=== PATIENT | male | born 1970 | race Caucasian/White ===

== ENCOUNTER 2017-08-14 12:12 | Inpatient (IN) | payer MEDICAID ==
[~2017-08-14] VITALS: Ht 175.3 cm; Wt 54.0 kg
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
[2017-08-14] MEDS ORDERED: Morphine Sulfate 4mg/ml Inj IVP ONE (12:45)
[2017-08-14] MEDS ORDERED: Bacitracin Oint UD TOPIC ONE ×2 (12:45)
[2017-08-14] MEDS ORDERED: Tetanus/Diptheria/Pertussis Vaccine 0.5ml Syr IM ONE (13:00)
[2017-08-14 13:18] VITALS: BP 127/54
[2017-08-14 13:21] LABS: BASOPHILS % (AUTO) 1.2 % (0.0-2.0); EOSINOPHILS % (AUTO) 0.8 % (0.0-3.0); LYMPHOCYTES % (AUTO) 18.8 % (20.0-45.0); MEAN CORPUSCULAR HEMOGLOBIN 31.8 PG (27.0-31.0); MEAN CORPUSCULAR HGB CONC 34.1 G/DL (32.0-36.0); MEAN CORPUSCULAR VOLUME 93 FL (80-99); MEAN PLATELET VOLUME 4.7 FL (6.5-10.1); MONOCYTES % (AUTO) 11.2 % (1.0-10.0); NEUTROPHILS % (AUTO) 67.9 % (45.0-75.0); PLATELET COUNT 268 K/UL (150-450); RED BLOOD COUNT 4.57 M/UL (4.70-6.10); WHITE BLOOD COUNT 4.9 K/UL (4.8-10.8)
[2017-08-14 13:37] LABS: ANION GAP 12 mmol/L (5-15); CALCIUM 8.8 MG/DL (8.5-10.1); CARBON DIOXIDE 23 MMOL/L (21-32); CHLORIDE 106 MMOL/L (98-107); CREATININE 0.8 MG/DL (0.55-1.30); GLOMERULAR FILTRATION RATE > 60 mL/min (>60); POTASSIUM 3.9 MMOL/L (3.5-5.1); SODIUM 141 MMOL/L (136-145)
[2017-08-14 13:42] LABS: ALANINE AMINOTRANSFERASE 27 U/L (12-78); ALBUMIN/GLOBULIN RATIO 0.7 (1.0-2.7); ASPARTATE AMINO TRANSFERASE 32 U/L (15-37); TOTAL PROTEIN 7.4 G/DL (6.4-8.2)
[2017-08-14] MEDS ORDERED: Ketorolac 30mg Inj IV ONE (15:00)
[2017-08-14 15:22] VITALS: BP 123/6
[2017-08-14 15:57] VITALS: BP 123/56
[2017-08-14] MEDS ORDERED: LORazepam Inj 2mg/ml 1ml IV PRN (16:15)
[2017-08-14] MEDS ORDERED: Morphine Sulfate 4mg/ml Inj IVP PRN (16:15)
[2017-08-14] MEDS ORDERED: Miralax 17gm pkt ORAL PRN (16:15)
[2017-08-14] MEDS ORDERED: Mylanta II UD 30ml ORAL PRN (16:15)
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
[2017-08-14 17:05] VITALS: BP 114/72
[2017-08-14] MEDS: Morphine Sulfate 2mg/ml Inj IVP PRN ×2 (18:16→22:16)
[2017-08-14 20:00] VITALS: BP 125/73
[2017-08-14] MEDS: Heparin 5000 units/ml inj SUBQ SCH (21:00)
[2017-08-14] MEDS: Zolpidem 5mg tab ORAL PRN (23:08)
[2017-08-15] VITALS: BP 112/77
[2017-08-15] MEDS: Morphine Sulfate 2mg/ml Inj IVP PRN (06:47)
[2017-08-15 08:00] VITALS: BP 133/77
[2017-08-15 08:32] LABS: BASOPHILS % (AUTO) 2.5 % (0.0-2.0); EOSINOPHILS % (AUTO) 3.8 % (0.0-3.0); LYMPHOCYTES % (AUTO) 28.2 % (20.0-45.0); MEAN CORPUSCULAR HEMOGLOBIN 32.8 PG (27.0-31.0); MEAN CORPUSCULAR HGB CONC 34.8 G/DL (32.0-36.0); MEAN CORPUSCULAR VOLUME 94 FL (80-99); MEAN PLATELET VOLUME 4.6 FL (6.5-10.1); MONOCYTES % (AUTO) 11.5 % (1.0-10.0); PLATELET COUNT 263 K/UL (150-450); RED BLOOD COUNT 4.21 M/UL (4.70-6.10); RED CELL DISTRIBUTION WIDTH 11.1 % (11.6-14.8); WHITE BLOOD COUNT 4.5 K/UL (4.8-10.8)
[2017-08-15 08:57] LABS: ALANINE AMINOTRANSFERASE 45 U/L (12-78); ALBUMIN/GLOBULIN RATIO 0.7 (1.0-2.7); ANION GAP 8 mmol/L (5-15); ASPARTATE AMINO TRANSFERASE 51 U/L (15-37); CALCIUM 8.5 MG/DL (8.5-10.1); CARBON DIOXIDE 25 MMOL/L (21-32); CHLORIDE 106 MMOL/L (98-107); CREATININE 0.8 MG/DL (0.55-1.30); GLOMERULAR FILTRATION RATE > 60 mL/min (>60); POTASSIUM 3.9 MMOL/L (3.5-5.1); SODIUM 139 MMOL/L (136-145); THYROID STIMULATING HORMONE 3.024 uiU/mL (0.358-3.740); TOTAL PROTEIN 6.9 G/DL (6.4-8.2)
[2017-08-15] MEDS: Heparin 5000 units/ml inj SUBQ SCH ×2 (09:00→20:17)
--- NOTE | 2017-08-15 09:28 | Consultation ---
History of Present Illness General Date patient seen: Aug 15, 2017 Chief Complaint: Pain Present Illness Allergies: Coded Allergies: MUSHROOM (Verified Allergy, Unknown, 08/14/17) Medication History No Active Prescriptions or Reported Meds Patient History Healthcare decision maker Resuscitation status Full Code Advanced Directive on File No Physical Exam Last 24 Hour Vital Signs Date Time Temp Pulse Resp B/P (MAP) Pulse Ox O2 Delivery O2 Flow Rate FiO2 08/15/17 08:00 98.1 69 18 133/77 100 Room Air 08/15/17 00:00 98.4 90 19 112/77 98 Room Air 08/14/17 20:00 97.7 75 19 125/73 100 Room Air 08/14/17 17:05 97.7 70 19 114/72 97 Room Air 08/14/17 16:13 98.4 82 18 123/56 100 Room Air 08/14/17 15:57 98.4 82 18 123/56 100 Room Air 08/14/17 15:25 98.4 08/14/17 15:22 98.4 82 18 123/6 100 Room Air 08/14/17 13:52 98.4 08/14/17 13:18 98.4 78 20 127/54 100 Room Air 08/14/17 12:20 98.4 82 20 116/65 100 Room Air Laboratory Tests Test 08/14/17 13:00 08/15/17 07:40 White Blood Count 4.9 K/UL (4.8-10.8) 4.5 K/UL (4.8-10.8) L Red Blood Count 4.57 M/UL (4.70-6.10) L 4.21 M/UL (4.70-6.10) L Hemoglobin 14.5 G/DL (14.2-18.0) 13.8 G/DL (14.2-18.0) L Hematocrit 42.5 % (42.0-52.0) 39.7 % (42.0-52.0) L Mean Corpuscular Volume 93 FL (80-99) 94 FL (80-99) Mean Corpuscular Hemoglobin 31.8 PG (27.0-31.0) H 32.8 PG (27.0-31.0) H Mean Corpuscular Hemoglobin Concent 34.1 G/DL (32.0-36.0) 34.8 G/DL (32.0-36.0) Red Cell Distribution Width 11.0 % (11.6-14.8) L 11.1 % (11.6-14.8) L Platelet Count 268 K/UL (150-450) 263 K/UL (150-450) Mean Platelet Volume 4.7 FL (6.5-10.1) L 4.6 FL (6.5-10.1) L Neutrophils (%) (Auto) 67.9 % (45.0-75.0) 54.0 % (45.0-75.0) Lymphocytes (%) (Auto) 18.8 % (20.0-45.0) L 28.2 % (20.0-45.0) Monocytes (%) (Auto) 11.2 % (1.0-10.0) H 11.5 % (1.0-10.0) H Eosinophils (%) (Auto) 0.8 % (0.0-3.0) 3.8 % (0.0-3.0) H Basophils (%) (Auto) 1.2 % (0.0-2.0) 2.5 % (0.0-2.0) H Sodium Level 141 MMOL/L (136-145) 139 MMOL/L (136-145) Potassium Level 3.9 MMOL/L (3.5-5.1) 3.9 MMOL/L (3.5-5.1) Chloride Level 106 MMOL/L (98-107) 106 MMOL/L (98-107) Carbon Dioxide Level 23 MMOL/L (21-32) 25 MMOL/L (21-32) Anion Gap 12 mmol/L (5-15) 8 mmol/L (5-15) Blood Urea Nitrogen 21 mg/dL (7-18) H 21 mg/dL (7-18) H Creatinine 0.8 MG/DL (0.55-1.30) 0.8 MG/DL (0.55-1.30) Estimat Glomerular Filtration Rate > 60 mL/min (>60) > 60 mL/min (>60) Glucose Level 98 MG/DL (74-106) 125 MG/DL (74-106) H Calcium Level 8.8 MG/DL (8.5-10.1) 8.5 MG/DL (8.5-10.1) Total Bilirubin 0.5 MG/DL (0.2-1.0) 0.6 MG/DL (0.2-1.0) Aspartate Amino Transf (AST/SGOT) 32 U/L (15-37) 51 U/L (15-37) H Alanine Aminotransferase (ALT/SGPT) 27 U/L (12-78) 45 U/L (12-78) Alkaline Phosphatase 69 U/L (46-116) 65 U/L (46-116) Total Creatine Kinase 289 U/L (26-308) Total Protein 7.4 G/DL (6.4-8.2) 6.9 G/DL (6.4-8.2) Albumin 3.1 G/DL (3.4-5.0) L 2.8 G/DL (3.4-5.0) L Globulin 4.3 g/dL 4.1 g/dL Albumin/Globulin Ratio 0.7 (1.0-2.7) L 0.7 (1.0-2.7) L Thyroid Stimulating Hormone (TSH) 3.024 uiU/mL (0.358-3.740) Height (Feet): 5 Height (Inches): 9.00 Weight (Pounds): 119 Medications Current Medications Medications (Trade) Dose Ordered Sig/K[place]y Route PRN Reason Start Time Stop Time Status Last Admin Dose Admin Acetaminophen (Tylenol) 650 mg Q4H PRN ORAL T> 100.5 F 08/14/17 16:15 09/13/17 16:14 Al Hydroxide/Mg Hydroxide (Mylanta II) 30 ml Q6H PRN ORAL dyspepsia 08/14/17 16:15 09/13/17 16:14 Dextrose (Dextrose 50%) STAT PRN IV Hypoglycemia 08/14/17 16:15 09/13/17 16:14 Heparin Sodium (Porcine) (Heparin 5000 units/ml) 5,000 units EVERY 12 HOURS SUBQ 08/14/17 21:00 09/13/17 20:59 Lorazepam (Ativan 2mg/ml 1ml) 0.5 mg Q4H PRN IV For Anxiety 08/14/17 16:15 08/21/17 16:14 Methocarbamol (Robaxin) 500 mg Q8H ORAL 08/15/17 09:30 09/14/17 09:29 UNV Ondansetron HCl (Zofran) 4 mg Q6H PRN IVP Nausea & Vomiting 08/14/17 16:15 09/13/17 16:14 Oxycodone/ Acetaminophen (Percocet 10/325) 1 tab Q4H PRN ORAL severe pain 08/15/17 09:30 08/22/17 09:29 UNV Polyethylene Glycol (Miralax) 17 gm HSPRN PRN ORAL Constipation 08/14/17 16:15 09/13/17 16:14 Pregabalin (Lyrica) 50 mg THREE TIMES A DAY ORAL 08/15/17 09:30 09/14/17 09:29 UNV Zolpidem Tartrate (Ambien) 5 mg HSPRN PRN ORAL Insomnia 08/14/17 21:00 08/21/17 20:59 08/14/17 23:08 Assessment/Plan Assessment/Plan (1) Intractable pain (2) Left foot Navicular Fracture (3) Lumbago (4) Multiple contusions Seen dictated ALETHEA GRAY Aug 15, 2017 09:28
[2017-08-15] MEDS: Lyrica 50mg cap ORAL SCH ×3 (10:13→17:33)
[2017-08-15] MEDS: Methocarbamol 500mg tab ORAL SCH ×2 (10:46→17:32)
[2017-08-15 12:00] VITALS: BP 107/70
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
[2017-08-15 16:00] VITALS: BP 113/67
[2017-08-15 20:00] VITALS: BP 116/73
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
[2017-08-16] VITALS: BP 114/74
[2017-08-16] MEDS: Zolpidem 5mg tab ORAL PRN (00:58)
[2017-08-16] MEDS: Methocarbamol 500mg tab ORAL SCH ×3 (00:58→17:48)
[2017-08-16 04:00] VITALS: BP 121/71
[2017-08-16 08:00] VITALS: BP 126/81
[2017-08-16] MEDS: Lyrica 50mg cap ORAL SCH ×3 (08:28→18:51)
[2017-08-16] MEDS: Heparin 5000 units/ml inj SUBQ SCH ×2 (08:29→21:06)
--- NOTE | 2017-08-16 09:00 | General Progress Note ---
Assessment/Plan Assessment/Plan (1) Intractable pain (2) Left foot Navicular Fracture (3) Lumbago (4) Multiple contusions Pt to be continued on Percocet and will be started on Dilaudid 2mg PO 1tab Q6H PRN severe pain. D/w Dr. Peña and he concurred. Subjective Date patient seen: Aug 16, 2017 Time patient seen: 07:15 - am Allergies: Coded Allergies: MUSHROOM (Verified Allergy, Unknown, 08/14/17) Subjective REVIEW OF SYSTEMS: Denies rash, fever, chills, sweating, dizziness, drowsiness, blurred vision, sore throat, or change in weight. No shortness of breath or chest pain. No nausea, vomiting, diarrhea, or blood in the stool or urine. No bowel or bladder incontinence . No dysuria. He is complaining of generalized pain. SUBJECTIVE: Pt reports that his pain has been severe and not tolerated on the Percocet and is unable to have relief. Medical records were reviewed. Objective Last 24 Hour Vital Signs Date Time Temp Pulse Resp B/P (MAP) Pulse Ox O2 Delivery O2 Flow Rate FiO2 08/16/17 04:00 97.6 64 18 121/71 99 Room Air 08/16/17 00:00 98.8 73 20 114/74 97 Room Air 08/15/17 20:00 98.6 61 20 116/73 98 Room Air 08/15/17 16:00 98.4 63 19 113/67 99 Room Air 08/15/17 12:00 98.1 70 19 107/70 99 Room Air Height (Feet): 5 Height (Inches): 9.00 Weight (Pounds): 119 Objective GENERAL: Alert, awake, and oriented. HEENT: PERRLA with contusions and abrasions noted across on his lips, nose, and face. NECK: Range of motion is decreased due to the patient's clinical condition. No tenderness to paracervical muscles. No adenopathy. LUNGS: Clear. HEART: Regular. ABDOMEN: Benign. BACK: Range of motion is decreased in flexion and extension with tenderness to paraspinal muscles. No tenderness to trapezius and rhomboid muscles. EXTREMITIES: Lower extremity range of motion is decreased due to the patient's clinical condition with bandages applied to bilateral lower extremities. NEURO: No changes. ZEDNALETHEA GUZMAN Aug 16, 2017 09:00
[2017-08-16] MEDS: HYDROmorphone 2mg tab ORAL PRN ×3 (10:37→23:31)
--- NOTE | 2017-08-16 10:37 | Diagnostic Imaging Report ---
Indication: PAIN Technique: 3 views of the left ankle Comparison: none Findings: No acute fractures. No dislocations. Joint spaces are preserved Impression: Negative
--- NOTE | 2017-08-16 10:40 | Diagnostic Imaging Report ---
Indication: PAIN Technique: 3 views of the right ankle Comparison: none Findings: No acute fractures. No dislocations. Joint spaces are preserved. Normal mineralization. No radiopaque foreign body. Impression: Negative
--- NOTE | 2017-08-16 10:41 | Diagnostic Imaging Report ---
Indication: PAIN Technique: 3 views right foot Comparison: none Findings: No acute fractures. No dislocations. The joint spaces are preserved. Tiny bone island is seen within the first distal phalanx. Impression: Negative
--- NOTE | 2017-08-16 10:42 | Diagnostic Imaging Report ---
Indication: PAIN Technique: 3 views left foot Comparison: none Findings: No acute fractures. No dislocations. The joint spaces are preserved. Impression: Negative
[2017-08-16 12:00] VITALS: BP 131/79
[2017-08-16] MEDS ORDERED: Bacitracin Oint UD TOPIC PRN (12:30)
--- NOTE | 2017-08-16 13:44 | Wound Care Consultation ---
Wound Assessment Wound Assessment : Wound Present on Admission: Yes New Wound: No Status Change of Wound: No Wound Location Body Site Modif: other Wound Location Body Site: other - Left cheek,nose,bottom lip,chin, right hand and fingers,left hand and fingers, left elbow,left lower leg, left foot extending to dorsal foot, left shoulder,right upper arm,right knee, right lateral malleolus extending to dorsal foot and posterior back Wound Type: traumatic injury Jessy Test: Does not Jessy Traumatic Injury Wounds: Abrasion Wound Thickness: Full Thickness Wound Drainage Description: Serosanguineous Wound Drainage Amount: Scant Wound Drainage Odor: None/Absent Tissue Surrounding Wound: Macerated Wound General Appearance: Reddened, Draining Wound Comment Recommendations -Local wound care per protocol for full thickness and partial thickness open wounds -Keep clean and dry -Optimize nutrition -Assess and f/u with MD for any changes CHRIS TOMPKINS RN Aug 16, 2017 13:44
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
[2017-08-16 16:00] VITALS: BP 122/82
[2017-08-16 20:00] VITALS: BP 137/78
--- NOTE | 2017-08-16 23:46 | Consultation ---
History of Present Illness General Chief Complaint: Pain Present Illness HPI 46-year-old male presents to the emergency department complaining of 10 out of 10 in severity pain throughout his lower half of the body. Allergies: Coded Allergies: MUSHROOM (Verified Allergy, Unknown, 08/14/17) Medication History No Active Prescriptions or Reported Meds Patient History Healthcare decision maker Resuscitation status Full Code Advanced Directive on File No Physical Exam Last 24 Hour Vital Signs Date Time Temp Pulse Resp B/P (MAP) Pulse Ox O2 Delivery O2 Flow Rate FiO2 08/16/17 20:00 98.2 65 20 137/78 99 Room Air 08/16/17 16:00 98.1 61 18 122/82 98 08/16/17 12:00 98.1 58 18 131/79 100 08/16/17 12:00 100 Room Air 08/16/17 08:00 98.2 61 18 126/81 95 Room Air 08/16/17 08:00 95 Room Air 08/16/17 04:00 97.6 64 18 121/71 99 Room Air 08/16/17 00:00 98.8 73 20 114/74 97 Room Air Intake and Output 08/16/17 08/17/17 19:00 07:00 Intake Total 240 ml Output Total 1450 ml Balance -1210 ml Intake Oral 240 ml Output Urine Total 1450 ml Height (Feet): 5 Height (Inches): 9.00 Weight (Pounds): 119 Medications Current Medications Medications (Trade) Dose Ordered Sig/Korey Route PRN Reason Start Time Stop Time Status Last Admin Dose Admin Acetaminophen (Tylenol) 650 mg Q4H PRN ORAL T> 100.5 F 08/14/17 16:15 09/13/17 16:14 Al Hydroxide/Mg Hydroxide (Mylanta II) 30 ml Q6H PRN ORAL dyspepsia 08/14/17 16:15 09/13/17 16:14 Bacitracin (Bacitracin) 1 applic DAILY PRN TOPIC Itching 08/16/17 12:30 09/15/17 12:29 08/16/17 15:28 Dextrose (Dextrose 50%) STAT PRN IV Hypoglycemia 08/14/17 16:15 09/13/17 16:14 Heparin Sodium (Porcine) (Heparin 5000 units/ml) 5,000 units EVERY 12 HOURS SUBQ 08/14/17 21:00 09/13/17 20:59 08/16/17 21:06 Hydromorphone HCl (Dilaudid) 2 mg Q6H PRN ORAL Breakthrough Pain 08/16/17 10:00 08/23/17 09:59 08/16/17 23:31 Lorazepam (Ativan 2mg/ml 1ml) 0.5 mg Q4H PRN IV For Anxiety 08/14/17 16:15 08/21/17 16:14 Methocarbamol (Robaxin) 500 mg Q8H ORAL 08/15/17 09:30 09/14/17 09:29 08/16/17 17:48 Nicotine (Nicoderm) 1 patch Q24H TDERMAL 08/16/17 08:00 09/15/17 07:59 08/16/17 08:28 Ondansetron HCl (Zofran) 4 mg Q6H PRN IVP Nausea & Vomiting 08/14/17 16:15 09/13/17 16:14 Oxycodone/ Acetaminophen (Percocet 10/325) 1 tab Q4H PRN ORAL severe pain 08/15/17 09:30 08/22/17 09:29 08/16/17 21:05 Polyethylene Glycol (Miralax) 17 gm HSPRN PRN ORAL Constipation 08/14/17 16:15 09/13/17 16:14 Pregabalin (Lyrica) 50 mg THREE TIMES A DAY ORAL 08/15/17 09:30 09/14/17 09:29 08/16/17 18:51 Zolpidem Tartrate (Ambien) 5 mg HSPRN PRN ORAL Insomnia 08/14/17 21:00 08/21/17 20:59 08/16/17 00:58 Fuentes Fenton M.D. Aug 16, 2017 23:46
[2017-08-17] VITALS: BP 123/85
[2017-08-17] MEDS: Zolpidem 5mg tab ORAL PRN (01:14)
[2017-08-17] MEDS: Methocarbamol 500mg tab ORAL SCH ×3 (01:14→18:09)
[2017-08-17 04:10] VITALS: BP 132/65
[2017-08-17] MEDS: HYDROmorphone 2mg tab ORAL PRN ×2 (07:36→16:09)
[2017-08-17 08:00] VITALS: BP 120/78
--- NOTE | 2017-08-17 08:53 | General Progress Note ---
Assessment/Plan Assessment/Plan (1) Intractable pain (2) Left foot Navicular Fracture (3) Lumbago (4) Multiple contusions Pt to be continued on Percocet and Dilaudid. We will order an MRI of Lumbar spine w/o contrast. D/w Dr. Peña and he concurred. Subjective Date patient seen: Aug 17, 2017 Time patient seen: 07:30 - am Allergies: Coded Allergies: MUSHROOM (Verified Allergy, Unknown, 08/14/17) Subjective REVIEW OF SYSTEMS: Denies rash, fever, chills, sweating, dizziness, drowsiness, blurred vision, sore throat, or change in weight. No shortness of breath or chest pain. No nausea, vomiting, diarrhea, or blood in the stool or urine. No bowel or bladder incontinence . No dysuria. He is complaining of generalized pain. SUBJECTIVE: Pt is in bed and continues to c/o severe pain. The pain has been tolerated on the medications and is looking forward to being discharged to SNF as per lens blank gauger. Objective Last 24 Hour Vital Signs Date Time Temp Pulse Resp B/P (MAP) Pulse Ox O2 Delivery O2 Flow Rate FiO2 08/17/17 08:00 97.7 86 20 120/78 98 08/17/17 04:11 Room Air 08/17/17 04:10 97.5 80 18 132/65 95 08/17/17 00:00 98.1 62 20 123/85 100 Room Air 08/17/17 00:00 Room Air 08/16/17 20:00 98.2 65 20 137/78 99 Room Air 08/16/17 20:00 Room Air 08/16/17 16:00 98.1 61 18 122/82 98 08/16/17 12:00 98.1 58 18 131/79 100 08/16/17 12:00 100 Room Air Height (Feet): 5 Height (Inches): 9.00 Weight (Pounds): 119 Objective GENERAL: Alert, awake, and oriented. HEENT: PERRLA with contusions and abrasions noted across on his lips, nose, and face. NECK: Range of motion is decreased due to the patient's clinical condition. No tenderness to paracervical muscles. No adenopathy. LUNGS: Clear. HEART: Regular. ABDOMEN: Benign. BACK: Range of motion is decreased in flexion and extension with tenderness to paraspinal muscles. No tenderness to trapezius and rhomboid muscles. EXTREMITIES: Lower extremity range of motion is decreased due to the patient's clinical condition with bandages applied to bilateral lower extremities. NEURO: No changes. ALETHEA GRAY Aug 17, 2017 08:53
[2017-08-17] MEDS ORDERED: BuPROPion XL 150mg tab ORAL SCH (09:00)
[2017-08-17] MEDS: Lyrica 50mg cap ORAL SCH ×2 (09:06→14:00)
[2017-08-17] MEDS: Heparin 5000 units/ml inj SUBQ SCH (09:08)
[2017-08-17 12:00] VITALS: BP 109/68
[2017-08-17 16:00] VITALS: BP 119/86
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
[2017-08-17] MEDS ORDERED: TraZODone 50mg tab ORAL SCH (21:00)
--- NOTE | 2017-08-17 23:08 | General Progress Note ---
Assessment/Plan Status: stable, progressing Assessment/Plan anxiety mdd -cont current meds Subjective Date patient seen: Aug 17, 2017 Neurologic/Psychiatric: Reports: anxiety, depressed, emotional problems Allergies: Coded Allergies: MUSHROOM (Verified Allergy, Unknown, 08/14/17) Objective Last 24 Hour Vital Signs Date Time Temp Pulse Resp B/P (MAP) Pulse Ox O2 Delivery O2 Flow Rate FiO2 08/17/17 16:00 97.9 73 21 119/86 99 Room Air 08/17/17 12:00 98.1 84 20 109/68 98 08/17/17 08:00 97.7 86 20 120/78 98 08/17/17 04:11 Room Air 08/17/17 04:10 97.5 80 18 132/65 95 08/17/17 00:00 98.1 62 20 123/85 100 Room Air 08/17/17 00:00 Room Air Intake and Output 08/17/17 08/18/17 19:00 07:00 Intake Total 240 ml Output Total 550 ml Balance -310 ml Intake Oral 240 ml Output Urine Total 550 ml Height (Feet): 5 Height (Inches): 9.00 Weight (Pounds): 119 General Appearance: no apparent distress, alert, thin Neurologic: alert, oriented x 3, responsive Fuentes Fenton M.D. Aug 17, 2017 23:08
--- NOTE | 2017-08-18 23:25 | Discharge Summary ---
Discharge Summary Hospital Course Date of Admission Aug 14, 2017 at 15:01 Date of Discharge Aug 17, 2017 at 18:25 Admitting Diagnosis myalgia, malingering, unable to ambulate HPI Manohar Matute is a 46 year old male who was admitted on Aug 14, 2017 at 15:01 for Myalgia,Malingering,Unable To Ambulate Hospital Course [id number] Discharge Discharge Disposition Patient was discharged to SNF/Subacute Facility(03) Discharge Diagnoses: Carmela Kowalski NP Aug 18, 2017 23:25
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
== END 2017-08-17 18:25 | DRG 342 ==
LOC: EDUNIT# 12:12 → EDBD 12:12 → EMR 12:30 → 4E 15:01 → EDBEDREQ 15:42
DX: S92.252A Displaced fracture of navicular [scaphoid] of left foot, initial encounter for closed fracture (principal); F32.9 Major depressive disorder, single episode, unspecified; T14.8XXA Other injury of unspecified body region, initial encounter; M54.5 Low back pain; F41.9 Anxiety disorder, unspecified; F17.200 Nicotine dependence, unspecified, uncomplicated; V09.20XA Pedestrian injured in traffic accident involving unspecified motor vehicles, initial encounter; Y92.410 Unspecified street and highway as the place of occurrence of the external cause
CPT/HCPCS: 36415; 72148; 80053; 82550; 84443; 85025; 87070; 87081; 87181; 87205; 99285